=== PATIENT | female | born 1980 | race Hispanic/Latino ===

== ENCOUNTER 2019-04-09 16:26 | Emergency (ER) | payer MEDICAID ==
[2019-04-09] MEDS ORDERED: HYDROCODONE/ACETAMINOPHEN 5/325 MG TAB ONE (18:51)
== END 2019-04-09 19:36 | disposition home or self-care (01) ==
LOC: EDH 16:26
DX: S93.401A Sprain of unspecified ligament of right ankle, initial encounter (principal); I12.0 Hypertensive chronic kidney disease with stage 5 chronic kidney disease or end stage renal disease; E11.22 Type 2 diabetes mellitus with diabetic chronic kidney disease; N18.6 End stage renal disease; Z99.2 Dependence on renal dialysis; Z90.710 Acquired absence of both cervix and uterus; Z98.890 Other specified postprocedural states; X50.1XXA Overexertion from prolonged static or awkward postures, initial encounter; Y93.89 Activity, other specified; Y92.89 Other specified places as the place of occurrence of the external cause; Y99.8 Other external cause status
CPT/HCPCS: 73562; 73610

== ENCOUNTER 2019-04-23 20:21 | Inpatient (IN) | payer MEDICAID ==
[~2019-04-23] VITALS: Ht 149.9 cm; Wt 98.9 kg
[2019-04-23] MEDS ORDERED: SODIUM CHLORIDE 0.9% 50 ML IV ONE (21:10)
[2019-04-23 21:52] LABS: BASOPHILS % (AUTO) 0.5 % (0.0-5.0); EOSINOPHILS % (AUTO) 2.9 % (0.0-8.0); HEMATOCRIT 33.7 % (36-48); LYMPHOCYTES % (AUTO) 15.3 % (21.0-51.0); MEAN CORPUSCULAR HEMOGLOBIN 33.2 pg (27.0-33.0); MEAN CORPUSCULAR HGB CONC 33.9 g/dL (32.0-36.0); MEAN CORPUSCULAR VOLUME 97.8 fL (79-99); MONOCYTES % (AUTO) 6.5 % (3.0-13.0); NEUTROPHILS % (AUTO) 74.8 % (40.0-77.0); PLATELET COUNT (AUTO) 172 K/uL (130-400); RED BLOOD CELL COUNT(AUTO) 3.44 MIL/uL (4.00-5.50); RED CELL DISTRIBUTION WIDTH 13.4 % (11.0-15.5); WHITE BLOOD COUNT (AUTO) 9.8 K/uL (4.8-10.8)
[2019-04-23 22:09] LABS: ALBUMIN 3.3 g/dL (3.5-5.0); BILIRUBIN,DIRECT 0.1 mg/dL (0.0-0.3); BILIRUBIN,TOTAL 0.3 mg/dL (0.2-1.0); POTASSIUM 5.3 mmol/L (3.5-5.1); TOTAL PROTEIN, SERUM 7.1 g/dL (6.0-8.3)
[2019-04-23 22:14] LABS: CREATININE 8.5 mg/dL (0.5-1.5)
[2019-04-23] MEDS ORDERED: DEXTROSE 50%-WATER 50 ML DISP.SYRIN IV PRN (22:45)
[2019-04-23] MEDS ORDERED: GLUCAGON 1MG KIT 1 MG ML IM PRN (22:45)
[2019-04-23] MEDS: CLINDAMYCIN 600 MG/D5% WATER 50 ML IV SCH (22:45)
[2019-04-23] MEDS ORDERED: NITROGLYCERIN 0.4 MG SL TAB SL PRN (22:45)
[2019-04-23] MEDS ORDERED: ONDANSETRON HCL 4 MG/2 ML VIAL IV PRN (22:45)
[2019-04-23 23:00] VITALS: BP 118/69
[2019-04-23 23:09] LABS: MAGNESIUM 2.6 mg/dL (1.80-2.40); PHOSPHORUS 4.8 mg/dL (2.5-4.9)
[2019-04-23 23:15] LABS: HEMOGLOBIN A1C 6.1 % (4.0-6.0)
[2019-04-23] MEDS ORDERED: ACETAMINOPHEN 325 MG TAB PO PRN ×2 (23:15)
[2019-04-23] MEDS ORDERED: CLINDAMYCIN 600 MG/D5% WATER 50 ML IV ONE (23:33)
[2019-04-24] MEDS ORDERED: CALC667C10 PO (00:36)
[2019-04-24] MEDS ORDERED: INSU100I35 SQ ×2 (00:36)
[2019-04-24] MEDS ORDERED: SEVE800T7 PO (00:36)
[2019-04-24 03:00] VITALS: BP 126/68
[2019-04-24] MEDS: CLINDAMYCIN 600 MG/D5% WATER 50 ML IV SCH ×3 (05:36→22:33)
[2019-04-24 05:45] LABS: HEMATOCRIT 31.7 % (36-48); MEAN CORPUSCULAR HEMOGLOBIN 33.2 pg (27.0-33.0); MEAN CORPUSCULAR HGB CONC 34.1 g/dL (32.0-36.0); MEAN CORPUSCULAR VOLUME 97.4 fL (79-99); PLATELET COUNT (AUTO) 161 K/uL (130-400); RED BLOOD CELL COUNT(AUTO) 3.26 MIL/uL (4.00-5.50); RED CELL DISTRIBUTION WIDTH 13.2 % (11.0-15.5); WHITE BLOOD COUNT (AUTO) 9.3 K/uL (4.8-10.8)
[2019-04-24 06:04] LABS: ALBUMIN 2.9 g/dL (3.5-5.0); BILIRUBIN,TOTAL 0.2 mg/dL (0.2-1.0); POTASSIUM 5.5 mmol/L (3.5-5.1); TOTAL PROTEIN, SERUM 6.4 g/dL (6.0-8.3)
[2019-04-24 06:15] LABS: CREATININE 9.1 mg/dL (0.5-1.5)
[2019-04-24] MEDS: INSULIN HUMULIN R 100 UNIT/ML 3ML SQ SCH ×4 (06:20→20:34)
[2019-04-24 07:02] LABS: EOSINOPHILS % (MANUAL) 1 % (1-6); LYMPHOCYTES % (MANUAL) 30 % (22-44); MAN.DIFF COMMENT-IMPRESSION MANUAL DIFFERENTIAL; MONOCYTES % (MANUAL) 2 % (2-9); PLATELET MORPHOLOGY COMMENT ADEQUATE; SEGMENTED NEUTROPHILS % 67 % (40-70)
[2019-04-24 07:30] VITALS: BP 146/83
[2019-04-24 11:00] VITALS: BP 104/53
[2019-04-24] MEDS: FAMOTIDINE 20MG TAB 20 MG TAB PO SCH ×2 (13:05→20:33)
[2019-04-24 16:00] VITALS: BP 161/90
[2019-04-24 20:00] VITALS: BP 110/69
[2019-04-25] VITALS: BP 142/75
[2019-04-25 04:00] VITALS: BP 139/80
[2019-04-25 04:38] LABS: HEMATOCRIT 32.7 % (36-48); MEAN CORPUSCULAR HEMOGLOBIN 33.6 pg (27.0-33.0); MEAN CORPUSCULAR HGB CONC 34.3 g/dL (32.0-36.0); MEAN CORPUSCULAR VOLUME 97.9 fL (79-99); PLATELET COUNT (AUTO) 154 K/uL (130-400); RED BLOOD CELL COUNT(AUTO) 3.34 MIL/uL (4.00-5.50); RED CELL DISTRIBUTION WIDTH 13.3 % (11.0-15.5); WHITE BLOOD COUNT (AUTO) 7.6 K/uL (4.8-10.8)
[2019-04-25 04:57] LABS: HEMOGLOBIN A1C 6.1 % (4.0-6.0)
[2019-04-25 05:03] LABS: CREATININE 6.2 mg/dL (0.5-1.5); CRP QUANTITATIVE 42.2 mg/L (0.00-9.0); POTASSIUM 4.9 mmol/L (3.5-5.1)
[2019-04-25] MEDS: CLINDAMYCIN 600 MG/D5% WATER 50 ML IV SCH ×3 (05:32→22:58)
[2019-04-25 05:46] LABS: ERYTHROCYTE SEDIMENTATION RATE 44 MM/HR (0-20)
[2019-04-25] MEDS: INSULIN HUMULIN R 100 UNIT/ML 3ML SQ SCH ×3 (06:12→20:44)
[2019-04-25 08:00] VITALS: BP 114/61
[2019-04-25] MEDS: FAMOTIDINE 20MG TAB 20 MG TAB PO SCH ×2 (08:43→20:44)
[2019-04-25] MEDS: SEVELAMER HCL 800 MG TABLET PO SCH ×3 (08:43→17:03)
[2019-04-25 11:00] VITALS: BP 157/99
[2019-04-25 11:45] LABS: CHOLESTEROL 106 mg/dL (<200); HDL CHOLESTEROL 74 mg/dL (35-85); LDL DIRECT 63 mg/dL (0-99); TRIGLYCERIDES 95 mg/dL (30-200)
[2019-04-25 16:00] VITALS: BP 130/75
[2019-04-25 20:00] VITALS: BP 158/94
[2019-04-25] MEDS: CILOSTAZOL 100 MG TAB PO SCH (20:44)
[2019-04-25] MEDS ORDERED: SIMVASTATIN 20 MG TABLET PO SCH (21:00)
[2019-04-26] VITALS: BP 145/76
[2019-04-26 04:00] VITALS: BP 120/78
[2019-04-26] MEDS: CLINDAMYCIN 600 MG/D5% WATER 50 ML IV SCH ×2 (05:36→16:12)
[2019-04-26] MEDS: INSULIN HUMULIN R 100 UNIT/ML 3ML SQ SCH ×3 (06:11→16:30)
[2019-04-26 06:48] LABS: HEMATOCRIT 32.7 % (36-48); MEAN CORPUSCULAR HEMOGLOBIN 32.5 pg (27.0-33.0); MEAN CORPUSCULAR HGB CONC 33.4 g/dL (32.0-36.0); MEAN CORPUSCULAR VOLUME 97.5 fL (79-99); PLATELET COUNT (AUTO) 172 K/uL (130-400); RED BLOOD CELL COUNT(AUTO) 3.35 MIL/uL (4.00-5.50); RED CELL DISTRIBUTION WIDTH 13.1 % (11.0-15.5)
[2019-04-26 07:02] LABS: POTASSIUM 5.3 mmol/L (3.5-5.1)
[2019-04-26 07:07] LABS: CREATININE 8.3 mg/dL (0.5-1.5)
[2019-04-26 07:45] LABS: CRP QUANTITATIVE 35.5 mg/L (0.00-9.0)
[2019-04-26 07:53] LABS: ERYTHROCYTE SEDIMENTATION RATE 42 MM/HR (0-20)
[2019-04-26 08:00] VITALS: BP 143/80
[2019-04-26] MEDS: FAMOTIDINE 20MG TAB 20 MG TAB PO SCH (08:16)
[2019-04-26] MEDS: CILOSTAZOL 100 MG TAB PO SCH (08:16)
[2019-04-26] MEDS: SEVELAMER HCL 800 MG TABLET PO SCH ×2 (08:16→12:00)
[2019-04-26] MEDS ORDERED: ASPIRIN 81MG TAB.CHEW PO SCH (09:00)
[2019-04-26 12:00] VITALS: BP 149/75
[2019-04-26 16:00] VITALS: BP 89/51
[2019-04-26] MEDS ORDERED: CLIN300C9 PO (16:25)
[2019-04-27 06:12] LABS: HEPATITIS A ANTIBODY IGM Negative (Negative); HEPATITIS B CORE IGM Negative (Negative); HEPATITIS Bs ANTIGEN SCREEN P Negative (Negative)
== END 2019-04-26 20:28 | disposition home or self-care (01) | DRG 383 ==
LOC: EDH 20:21 → EDHIP 20:22 → 3AH 22:29
PROVIDERS: ADMIT Hospitalist; ATTEND Hospitalist
PROC: 5A1D70Z Performance of Urinary Filtration, Intermittent, Less than 6 Hours Per Day (ICD-10-PCS; principal; 2019-04-24)
PROC: 5A1D70Z Performance of Urinary Filtration, Intermittent, Less than 6 Hours Per Day (ICD-10-PCS; 2019-04-26)
DX: L03.115 Cellulitis of right lower limb (principal); E11.22 Type 2 diabetes mellitus with diabetic chronic kidney disease; E11.51 Type 2 diabetes mellitus with diabetic peripheral angiopathy without gangrene; N18.6 End stage renal disease; E66.01 Morbid (severe) obesity due to excess calories; E87.5 Hyperkalemia; D64.9 Anemia, unspecified; E78.5 Hyperlipidemia, unspecified; I12.0 Hypertensive chronic kidney disease with stage 5 chronic kidney disease or end stage renal disease; W19.XXXA Unspecified fall, initial encounter; Y93.89 Activity, other specified; Y92.89 Other specified places as the place of occurrence of the external cause; Y99.8 Other external cause status; Z68.41 Body mass index [BMI] 40.0-44.9, adult; Z99.2 Dependence on renal dialysis; Z87.891 Personal history of nicotine dependence; Z90.710 Acquired absence of both cervix and uterus; Z88.8 Allergy status to other drugs, medicaments and biological substances; Z82.5 Family history of asthma and other chronic lower respiratory diseases; Z82.0 Family history of epilepsy and other diseases of the nervous system; Z82.49 Family history of ischemic heart disease and other diseases of the circulatory system; Z83.3 Family history of diabetes mellitus
CPT/HCPCS: 36415; 73590; 80048; 80053; 80061; 80074; 80076; 82550; 82948; 83036; 83735; 84100; 85025; 85027; 85651; 86140; 87040; 90935; 93005; 93925; 93971; G0378; J1815; J3490

== ENCOUNTER 2019-05-09 11:34 | Emergency (ER) | payer MEDICAID ==
[~2019-05-09 11:34] MED LIST: CALC667C10 PO; CLIN300C9 PO; INSU100I35 SQ; SEVE800T7 PO
[2019-05-09 12:29] LABS: BASOPHILS % (AUTO) 0.6 % (0.0-5.0); EOSINOPHILS % (AUTO) 2.6 % (0.0-8.0); HEMATOCRIT 37.2 % (36-48); LYMPHOCYTES % (AUTO) 9.8 % (21.0-51.0); MEAN CORPUSCULAR HEMOGLOBIN 32.9 pg (27.0-33.0); MEAN CORPUSCULAR HGB CONC 33.1 g/dL (32.0-36.0); MEAN CORPUSCULAR VOLUME 99.4 fL (79-99); MONOCYTES % (AUTO) 5.6 % (3.0-13.0); NEUTROPHILS % (AUTO) 81.4 % (40.0-77.0); NUCLEATED RED BLOOD CELLS 0.1 % (0.0-0.19); PLATELET COUNT (AUTO) 196 K/uL (130-400); RED BLOOD CELL COUNT(AUTO) 3.74 MIL/uL (4.00-5.50); RED CELL DISTRIBUTION WIDTH 13.5 % (11.0-15.5); WHITE BLOOD COUNT (AUTO) 11.4 K/uL (4.8-10.8)
[2019-05-09 12:44] LABS: CREATININE 7.3 mg/dL (0.5-1.5); POTASSIUM 5.3 mmol/L (3.5-5.1)
[2019-05-09 12:46] LABS: INR 0.91 (0.85-1.15); PARTIAL THROMBOPLASTIN TIME 30.8 SEC (26.3-35.5); PROTHROMBIN TIME 9.6 SEC (9.6-11.6)
[2019-05-09 12:49] LABS: ALBUMIN 3.6 g/dL (3.5-5.0); BILIRUBIN,TOTAL 0.2 mg/dL (0.2-1.0); TOTAL PROTEIN, SERUM 7.7 g/dL (6.0-8.3)
== END 2019-05-09 13:50 | disposition home or self-care (01) ==
LOC: EDH 11:34
DX: E11.649 Type 2 diabetes mellitus with hypoglycemia without coma (principal); E11.22 Type 2 diabetes mellitus with diabetic chronic kidney disease; I12.0 Hypertensive chronic kidney disease with stage 5 chronic kidney disease or end stage renal disease; N18.6 End stage renal disease; Z99.2 Dependence on renal dialysis; Z79.4 Long term (current) use of insulin; Z88.8 Allergy status to other drugs, medicaments and biological substances; Z90.710 Acquired absence of both cervix and uterus
CPT/HCPCS: 36415; 71045; 80053; 82550; 82948; 84484; 85025; 85610; 85730; 93005

== ENCOUNTER 2021-11-17 14:54 | Emergency (ER) | payer MEDICAID ==
[~2021-11-17] VITALS: Ht 149.9 cm; Wt 98.9 kg
[~2021-11-17 14:54] MED LIST changes: +CLIN-141 PO; -CLIN300C9 PO
[2021-11-17 17:03] LABS: BASOPHILS % (AUTO) 0.3 % (0.0-5.0); EOSINOPHILS % (AUTO) 0.7 % (0.0-8.0); HEMATOCRIT 39.3 % (36-48); LYMPHOCYTES % (AUTO) 5.9 % (21.0-51.0); MEAN CORPUSCULAR HEMOGLOBIN 31.2 pg (27.0-33.0); MEAN CORPUSCULAR HGB CONC 32.3 g/dL (32.0-36.0); MEAN CORPUSCULAR VOLUME 96.6 fL (79-99); MONOCYTES % (AUTO) 2.7 % (3.0-13.0); NEUTROPHILS % (AUTO) 90.1 % (40.0-77.0); PLATELET COUNT (AUTO) 229 K/uL (130-400); RED BLOOD CELL COUNT(AUTO) 4.07 MIL/uL (4.00-5.50); RED CELL DISTRIBUTION WIDTH 12.8 % (11.0-15.5); WHITE BLOOD COUNT (AUTO) 14.8 K/uL (4.8-10.8)
[2021-11-17 17:42] LABS: CREATININE 4.9 mg/dL (0.5-1.5); POTASSIUM 5.1 mmol/L (3.5-5.1)
[2021-11-17 17:47] LABS: ALBUMIN 4.2 g/dL (3.5-5.0); BILIRUBIN,TOTAL 0.3 mg/dL (0.2-1.0); TOTAL PROTEIN, SERUM 8.7 g/dL (6.0-8.3)
[2021-11-17] MEDS ORDERED: ONDA4TAB4 PO (17:50)
[2021-11-17 18:21] VITALS: BP 165/79
== END 2021-11-17 18:21 | disposition home or self-care (01) ==
LOC: EDH 14:54
DX: R11.2 Nausea with vomiting, unspecified (principal); M79.10 Myalgia, unspecified site; Z20.822 Contact with and (suspected) exposure to COVID-19; I12.0 Hypertensive chronic kidney disease with stage 5 chronic kidney disease or end stage renal disease; E11.22 Type 2 diabetes mellitus with diabetic chronic kidney disease; N18.6 End stage renal disease; Z88.5 Allergy status to narcotic agent; Z88.8 Allergy status to other drugs, medicaments and biological substances; Z79.4 Long term (current) use of insulin; Z79.899 Other long term (current) drug therapy; Z99.2 Dependence on renal dialysis
CPT/HCPCS: 36415; 80053; 83690; 84484; 85025; 87635; 87804 ×2; 99283; C9803

== ENCOUNTER 2023-07-26 11:15 | Emergency (ER) | payer MEDICAID ==
[~2023-07-26] VITALS: Ht 149.9 cm; Wt 94.1 kg
[~2023-07-26 11:15] MED LIST changes: +ONDA4TAB4 PO
[2023-07-26] MEDS ORDERED: CEPH250T PO (14:22)
[2023-07-26] MEDS ORDERED: TRAM-355 PO (14:22)
[2023-07-26 14:34] VITALS: BP 163/94; PULSE 83; RESP 16; O2SAT 99
[2023-07-26] MEDS: ACETAMINOPHEN WITH CODEINE 1 TAB TAB PO ONE (15:14)
== END 2023-07-26 15:29 | disposition home or self-care (01) ==
LOC: EDH 11:15
DX: N76.4 Abscess of vulva (principal); I12.0 Hypertensive chronic kidney disease with stage 5 chronic kidney disease or end stage renal disease; E11.22 Type 2 diabetes mellitus with diabetic chronic kidney disease; N18.6 End stage renal disease; Z99.2 Dependence on renal dialysis; Z88.5 Allergy status to narcotic agent; Z88.8 Allergy status to other drugs, medicaments and biological substances; Z90.710 Acquired absence of both cervix and uterus
CPT/HCPCS: 82948